=== PATIENT | female | born 1970 | race Caucasian/White ===

== ENCOUNTER 2025-04-29 10:24 | Outpatient (CLI) | payer OTHER, SELFPAY ==
[2025-04-29 19:33] LABS: Free T4 Free Thyroxine 1.08 ng/dL (0.78-2.19)
[2025-04-29 20:49] LABS: Cholesterol 264 mg/dL (0-200); HDL Direct 54 mg/dL; Triglycerides 147 mg/dL (<150)
[2025-04-29 21:05] LABS: LDL Cholesterol Direct 152 mg/dL
[2025-05-01 06:18] LABS: Thyroid Peroxidase Antibodies. 477 IU/mL (<9)
== END 2025-04-29 10:25 | disposition home or self-care (01) ==
LOC: ANHBWCLAB 10:25
PROVIDERS: PCP Nurse Practitioner Adult Health; Visit Provider Nurse Practitioner Adult Health
DX: E07.9 Disorder of thyroid, unspecified (principal); E78.5 Hyperlipidemia, unspecified
CPT/HCPCS: 36415; 80061; 84439; 84443; 86376

== ENCOUNTER 2025-05-05 14:12 | Outpatient (CLI) | payer OTHER, SELFPAY ==
--- NOTE | ~2025-05-05 | US_ITS ---
EXAMINATION: US thyroid DATE: 05/05/2025 14:22 INDICATION: Autoimmune thyroiditis TECHNIQUE: Multiple ultrasound images of the thyroid were obtained. COMPARISON: None. FINDINGS: The right thyroid lobe measures 4.2 x 2.1 x 1.7 cm. The left thyroid lobe measures 2.5 x 1.2 x 1.4 c m. 9 mm solid hypoechoic wider than tall nodule with smooth margins and without echogenic foci in th e superior right thyroid lobe (TI-RADS 4, moderately suspicious , FNA if >=1.5 cm, annual followup is >=1 cm). 1.0 cm solid wider than tall isoechoic nodule with smooth margins in the left thyroid lobe (TI-RADS 3, mildly suspicious , FNA if >=2.5 cm, annual followup is >=1.5 cm). Routine is decreased e chogenicity and coarsened echotexture throughout the thyroid consistent with provided history of auto immune thyroiditis. IMPRESSION: 1. Heterogeneously hypoechoic thyroid with coarsened echotexture consistent with provided history of autoimmune thyroiditis. 2. 9 mm TI RADS 4 right thyroid nodule and 1.0 cm TI RADS 3 left thyroid nodule, both of which remain below size criteria for either biopsy or follow-up. Reviewed, dictated and finalized at location B. IMPRESSION: 1. Heterogeneously hypoechoic thyroid with coarsened echotexture consistent wit h provided history of autoimmune thyroiditis. 2. 9 mm TI RADS 4 right thyroid nodule and 1.0 cm TI RADS 3 left thyroid nodule , both of which remain below size criteria for either biopsy or follow-up.
== END 2025-05-05 14:13 | disposition home or self-care (01) ==
LOC: GOSHIMG 14:12
PROVIDERS: PCP Nurse Practitioner Adult Health; Visit Provider Nurse Practitioner Adult Health
DX: E06.3 Autoimmune thyroiditis (principal); E04.2 Nontoxic multinodular goiter
CPT/HCPCS: 76536

== ENCOUNTER 2025-08-05 08:42 | Outpatient (CLI) | payer OTHER, SELFPAY ==
--- NOTE | ~2025-08-05 | MM_ITS ---
EXAMINATION: MM screening jerry BI w giuliana HISTORY: Screening TECHNIQUE: Craniocaudal and mediolateral oblique 3-D tomosynthesis images were obtained and synthetic 2-D images were generated. CAD analysis was submitted and interpreted. COMPARISON: No prior mammogram is available for comparison at this institution. BREAST PARENCHYMAL COMPOSITION: Not dense: There are scattered areas of fibroglandular density. FINDINGS: There is no evidence of suspicious mass, calcification, or architectural distortion to suggest malignancy in either breast. There has been no suspicious interval change. IMPRESSION: 1. No mammographic evidence of malignancy. 2. Recommend routine screening mammography in one year. BI-RADS Category 1: Negative Reviewed, dictated and finalized at location B.
== END 2025-08-05 08:43 | disposition home or self-care (01) ==
LOC: MICIMG 08:43
PROVIDERS: PCP Nurse Practitioner Adult Health; Visit Provider Nurse Practitioner Adult Health
DX: Z12.31 Encounter for screening mammogram for malignant neoplasm of breast (principal)
CPT/HCPCS: 77063; 77067